=== PATIENT | male | born 1985 | race Caucasian/White ===

== ENCOUNTER 2025-05-20 12:46 | Outpatient (CLI) | payer OTHER, SELFPAY ==
--- NOTE | 2025-05-20 12:51 | CT_ITS ---
WS: [id number] CT HEAD TECHNIQUE: Noncontrast CT of the head obtained from the skullbase to the vertex. CLINICAL INFORMATION: HEADACHE COMPARISON: None. DLP: 1057.[address] scans at [facility] use at least one of these dose optimization techniques: automated exposure control; mA and/or kV adjustment per patient size (includes targeted exams where dose is matched to clinical indication); or iterative reconstruction. FINDINGS: No evidence of intracranial hemorrhage or mass effect. Ventricular system and basal cisterns are patent. No extra-axial fluid collections. No evidence of mass or mass effect. Normal arias-white differentiation. Paranasal sinuses and mastoid air cells are well aerated. .Normal visualized soft tissues. CT/CT head wo con* [id number] IMPRESSION: 1. No evidence of intracranial hemorrhage or mass effect. 2. No acute intracranial findings.
== END 2025-05-20 12:47 | disposition home or self-care (01) ==
LOC: RAD 12:48
PROVIDERS: PCP Family Medicine; Visit Provider Family Medicine Geriatric Medicine
DX: R51.9 Headache, unspecified (principal); Z01.89 Encounter for other specified special examinations
CPT/HCPCS: 70450